=== PATIENT | male | born 1960 | race Caucasian/White ===

== ENCOUNTER 2020-05-18 23:40 | Inpatient (IN) | payer MEDICARE ==
[2020-05-19 03:30] VITALS: BMI 22.8
[2020-05-19] MEDS ORDERED: Ondansetron PF 4 MG/2 ML Vial IVP PRN (04:07)
[2020-05-19] MEDS ORDERED: Acetaminophen 325 MG TAB PO PRN (04:07)
[2020-05-19] MEDS ORDERED: cloNIDine 0.1 MG TAB PO PRN (04:07)
[2020-05-19] MEDS ORDERED: Promethazine HCl 12.5 MG in Sodium Chloride 0.9% 50 ML IVPB PRN (04:07)
[2020-05-19] MEDS ORDERED: Guaifenesin DM 100-10/5 ML UDCUP PO PRN (04:07)
[2020-05-19] MEDS ORDERED: Labetalol HCl 100 MG/20 ML VIAL SLOW IVP PRN (04:07)
[2020-05-19] MEDS ORDERED: HYDROcodone/Acetaminophen 5/325 mg Tablet PO PRN (04:07)
[2020-05-19] MEDS ORDERED: hydrALAZINE 20 MG/ML VIAL SLOW IVP PRN (04:07)
[2020-05-19] MEDS ORDERED: Electrolyte Replacement Protocol 1 EACH FS SCH (04:15)
--- NOTE | 2020-05-19 04:23 | PDOC.HHP ---
Hospitalist HPI - History of Present Illness Anxiety, chest tightness History of Present Illness: Patient is a 59 year old male with no significant PMH who presents as [facility] for anxiety symptoms and chest tightness x 1 week. he reports body an chest tightness during these events and shortness of breath as well. happening for 2 days. patient has history of anxiety, takes no medications. Pain is 10/10 when present. not currently presents. he denies history of copd, cad, mi, other cardiac diagnoses. never had a cardiac workup. on presentation patient had arrhthmia, suspected atrial fibrilllation/flutter, rate 170s, CXR suggested CHF w/ small pleural effusions. CTA chest performed revealing effusions and nonspecific groundglass opacities. TnI, CKMB, ntprobnp elevated. Patient given one time doses of aspirin, diltiazem, lovenox, lasix, amiodarone, transferred here for further workup, currently in room. patient is bradycardic with no symptoms.Of note, patient has wound on L heel. Hospitalist ROS - Review of Systems Constitutional: denies: fever, chills, sweats, weakness, malaise, other Eyes: denies: pain, vision change, conjunctivae inflammation, eyelid inflammation, redness, other ENT: denies: ear pain, ear discharge, nose pain, nose discharge, nose congestion, mouth pain, mouth swelling, throat pain, throat swelling, other Respiratory: denies: cough, dry, shortness of breath, hemoptysis, SOB with excertion, pleuritic pain, sputum, wheezing, other Cardiovascular: reports: chest pain Gastrointestinal: denies: nausea, vomiting, abdominal pain, diarrhea, constipation, melena, hematochezia, other Genitourinary: denies: dysuria, frequency, incontinence, hematuria, retention, other Musculoskeletal: denies: neck pain, shoulder pain, arm pain, back pain, hand pain, leg pain, foot pain, other Skin: denies: rash, lesions, ashley, bruising, other Neurological: denies: weakness, numbness, incoordination, change in speech, confusion, seizures, other All other systems reviewed; all pertinent +/- noted in HPI/Subj Hospitalist History - Past Medical History Other Medical History: reviewed, denies PMH - Past Surgical History Other Surgical History: prostatectomy - Family History Family History: reports: no pertinent history - Social History Smoking Status: Current some day smoker Alcohol: reports: None Drugs: reports: none - Exam General Appearance: NAD, awake alert Eye: PERRL, anicteric sclera ENT: normocephalic atraumatic, no oropharyngeal lesions, moist mucosa Neck: supple, symmetric, no JVD, no thyromegaly, no lymphadenopathy, no carotid bruit Heart: no murmur, no gallops, no rubs, normal peripheral pulses Heart - other findings: regular, bradycardia Respiratory: CTAB, no wheezes, no rales, no ronchi, normal chest expansion, no tachypnea, normal percussion Gastrointestinal: soft, non-tender, non-distended, normal bowel sounds, no palpable masses, no hepatomegaly, no splenomegaly, no bruit Extremities: no cyanosis, no clubbing, no edema Skin: normal turgor, no lesions, no rashes Neurological: cranial nerve grossly intact, normal sensation to touch, no weakness, no focal deficits, no new deficit Musculoskeletal: normal tone, normal strength, no muscle wasting Psychiatric: normal affect, normal behavior, A&O x 3 Hospitalist Results - Labs Lab results: outside records reviewed, pertinent positives as follows CKMB 3.8, pro-BNP 3778, D dimer 1.25, TnI 0.88 - EKG Interpretation EK bpm, atrial flutter, no acute ST changes. Hospitalist H&P A/P - Plan Plan: Patient is a 59 year old male with no significant PMH who presents as [facility] for anxiety symptoms and chest tightness x 1 week. # chest pain # shortness of breath # anxiety symptoms # elevtated troponin # leukocytosis # atrial fibrillation w/ RVR on presentation patient had arrhthmia, suspected atrial fibrilllation/flutter, rate 170s, CXR suggested CHF w/ small pleural effusions. CTA chest performed revealing effusions and nonspecific groundglass opacities. TnI, CKMB, ntprobnp elevated. Patient given one time doses of aspirin, diltiazem, lovenox, lasix, amiodarone, transferred here for further workup, currently in room. patient is bradycardic with no symptoms.Of note, patient has wound on L heel. - admit to floor - hold further rate control medications for now, patient bradycardic and likely got a bit too much rate control medications before transfer - echo - consult cardiology - trend electrolytes, replacement parameters # bradycardia - likely due to excess medications given at outside hospital, monitor closely on telemetry # DVT/GI ppx full code
[2020-05-19] MEDS ORDERED: FLU VACC QS2020-21(6MOS UP)/PF 60 MCG/0.5 ML SYRINGE IM ONE (09:00)
[2020-05-19] MEDS: Famotidine 20 MG TAB PO SCH ×2 (09:07→20:27)
[2020-05-19] MEDS: Polyethylene Glycol 3350 17 GM Packet PO SCH (09:08)
[2020-05-19] MEDS ORDERED: Diltiazem 125 MG in Sodium Chloride 0.9% 100 ML IVPB SCH (10:45)
--- NOTE | 2020-05-19 10:48 | PDOC.HOSPP ---
- Subjective Encounter Date: 05/19/20 Encounter Time: 10:47 Subjective: no chest pain at present. described previous symptoms as like panic attack - Objective Vital Signs & Weight: Vital Signs (12 hours) Temp Pulse Resp BP Pulse Ox 05/19/20 07:38 98.4 F 111 H 16 128/90 95 05/19/20 07:35 95 05/19/20 03:00 98.1 F 93 18 118/84 98 Weight Weight 164 lb Hospitalist ROS - Medication Medications: Active Medications Generic Name Dose Route Start Last Admin Trade Name Freq PRN Reason Stop Dose Admin Famotidine 20 mg 05/19/20 09:00 05/19/20 09:07 Famotidine 20 Mg Tab PO 20 mg BID JULIANNA Administration Polyethylene Glycol 17 gm 05/19/20 09:00 05/19/20 09:08 Polyethylene Glycol 3350 17 Gm Packet PO Not Given DAILY JULIANNA - Exam General Appearance: awake alert Neck: no JVD Heart: irregular Heart - other findings: rapid Respiratory - other findings: post coarse BS Gastrointestinal: soft, normal bowel sounds Extremities: no edema Hosp A/P (1) Chest pain Code(s): R07.9 - CHEST PAIN, UNSPECIFIED Status: Acute Qualifiers: Chest pain type: unspecified Qualified Code(s): R07.9 - Chest pain, unspecified (2) Atrial fibrillation with RVR Code(s): I48.91 - UNSPECIFIED ATRIAL FIBRILLATION Status: Acute - Plan rate control stopped on admission. now about 140, srart diltiazem at 5 no lab ordered here- STAT cbc, cmp d-dimer, trop , EKG, CXR start anticoag
--- NOTE | 2020-05-19 10:54 | RAD ---
XR Chest 1 View Portable History: Chest pain Comparison: None. Findings: Moderate layering pleural effusions. Heart size is enlarged. Low-grade pulmonary edema. Impression: Mild decompensated congestive heart failure.
[2020-05-19 11:17] LABS: #Eosinphils 0.2 thou/uL (0.0-0.7); #Lymphocytes 1.3 thou/uL (1.20-3.40); #Monocytes 0.7 thou/uL (0.11-0.59); #Neutrophils 4.5 thou/uL (1.40-6.50); %Basophils 0.3 % (0.0-1.0); %Eosinophils 3.1 % (0.0-10.0); %Lymphocytes 19.5 % (21.0-51.0); %Neutrophils 66.1 % (42.0-75.0); Hemoglobin 11.6 g/dL (14.0-18.0); Mean Corpuscular HGB CONC 30.9 g/dL (32.0-36.0); Mean Platelet Volume 8.7 fL (7.4-10.4); Platelet Count 365 thou/uL (130-400); RBC Distribution Width 16.5 % (11.5-14.5); Red Blood Cell (RBC) Count 4.48 mill/uL (4.70-6.10); White Blood Cell (WBC) Count 6.8 thou/uL (4.8-10.8)
[2020-05-19 11:39] LABS: ALT (SGPT) 32 U/L (8-55); AST (SGOT) 27 U/L (5-34); Albumin 3.2 g/dL (3.5-5.0); Alkaline Phosphatase 89 U/L (40-110); Anion Gap 12 mmol/L (10-20); BUN (Urea Nitrogen) 14 mg/dL (8.4-25.7); Bilirubin, Total 0.6 mg/dL (0.2-1.2); Calc. Creatinine Clearance 94 mL/min (70-130); Calcium 8.4 mg/dL (7.8-10.44); Carbon Dioxide 23 mmol/L (22-29); Chloride 108 mmol/L (98-107); Glucose 100 mg/dL (70-105); Potassium 3.7 mmol/L (3.5-5.1); Protein, Total 7.2 g/dL (6.0-8.3); Sodium 139 mmol/L (136-145)
--- NOTE | 2020-05-19 15:24 | CON ---
DATE OF CONSULTATION: 05/19/2020 REASON FOR CONSULTATION: Atrial fibrillation. 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 HISTORY OF PRESENT ILLNESS: Mr. Swanson is a 59-year-old gentleman with no significant past medical history, who recently developed weakness, fatigue, and tachycardia. He also had associated shortness of breath, but no chest pain or pressure noted. He does admit to alcohol use in addition to methamphetamine use. He states his last dose of methamphetamine was one week ago. He is currently rate controlled on p.o. medication. PAST MEDICAL HISTORY: None. ALLERGIES: NONE. SURGICAL HISTORY: Prostatectomy. FAMILY HISTORY: Negative for CAD. SOCIAL HISTORY: Positive tobacco. Positive alcohol use. Positive drug use. REVIEW OF SYSTEMS: A 10-point review of systems is reviewed and is as above, otherwise negative. PHYSICAL EXAMINATION: GENERAL: Patient is a pleasant gentleman, who is in no acute distress. The patient appears their stated age. VITAL SIGNS: Blood pressure 136/81, pulse 105, respirations 20. NEUROLOGIC: The patient is alert and oriented x3 with no focal neurologic deficits. HEENT: Sclerae without icterus. Mouth has moist mucous membranes with normal pallor. NECK: No JVD. Carotid upstroke brisk. No bruits bilaterally. LUNGS: Clear to auscultation with unlabored respirations. BACK: No scoliosis or kyphosis. CARDIAC: Irregularly irregular. ABDOMEN: Soft, nontender, nondistended. No peritoneal signs present. No hepatosplenomegaly. No abnormal striae. EXTREMITIES: 2+ femoral and 2+ dorsalis pedis pulses. No cyanosis, clubbing, or edema. SKIN: No gross abnormalities. PERTINENT LABORATORY DATA: Hemoglobin 11.6, hematocrit 37.6. IMPRESSION: 1. New onset atrial fibrillation. 2. Illicit drug use. RECOMMENDATIONS: 1. We will check a TSH. 2. Check echo. 3. Continue rate control. We will add p.o. Cardizem at 180 mg one p.o. q.h.s. I counseled him on cessation of all tobacco products and alcohol in addition to illicit drug use. Echo with Doppler pending. 4. If stable, it would be okay from my standpoint to discharge home with close outpatient followup. Job ID: [id number]
[2020-05-19 18:50] LABS: Amphetamine Detected (NotDetected); Barbiturates Screen Not Detected (NotDetected); Benzodiazepine Screen Not Detected (NotDetected); Cocaine Metabolite Screen Not Detected (NotDetected); Medtox Control Line Valid? VALID (VALID); Medtox Reader # READER 4; Methadone Not Detected (NotDetected); Methamphetamine Detected (NotDetected); Opiate Screen Not Detected (NotDetected); Oxycodone Screen Not Detected (NotDetected); Phencyclidine (PCP) Not Detected (NotDetected); THC/Cannabinoid Screen Not Detected (NotDetected); Tricyclic Screen Not Detected (NotDetected)
[2020-05-19] MEDS ORDERED: Enoxaparin Sodium 40 MG/0.4 ML SYRINGE SC SCH (21:00)
[2020-05-19] MEDS ORDERED: Enoxaparin Sodium 80 MG/0.8 ML SYRINGE SC SCH (21:00)
[2020-05-20 05:43] LABS: Hemoglobin A1c 5.9 % (4.0-6.0)
[2020-05-20 05:44] LABS: Anion Gap 14 mmol/L (10-20); BUN (Urea Nitrogen) 18 mg/dL (8.4-25.7); Calc. Creatinine Clearance 87 mL/min (70-130); Calcium 8.3 mg/dL (7.8-10.44); Carbon Dioxide 24 mmol/L (22-29); Chloride 107 mmol/L (98-107); Glucose 107 mg/dL (70-105); Magnesium 1.9 mg/dL (1.6-2.6); Potassium 3.8 mmol/L (3.5-5.1); Sodium 141 mmol/L (136-145); Troponin I 0.051 ng/mL (< 0.028)
[2020-05-20 06:38] LABS: #Eosinphils 0.2 thou/uL (0.0-0.7); #Lymphocytes 1.5 thou/uL (1.20-3.40); #Neutrophils 5.8 thou/uL (1.40-6.50); %Basophils 0.4 % (0.0-1.0); %Eosinophils 2.5 % (0.0-10.0); %Lymphocytes 17.3 % (21.0-51.0); %Monocytes 12.2 % (0.0-10.0); %Neutrophils 67.7 % (42.0-75.0); Hemoglobin 11.7 g/dL (14.0-18.0); Mean Corpuscular Hemoglobin 25.7 pg (27.0-31.0); Mean Corpuscular Volume 82.8 fL (78.0-98.0); Mean Platelet Volume 9.1 fL (7.4-10.4); Platelet Count 384 thou/uL (130-400); RBC Distribution Width 16.4 % (11.5-14.5); Red Blood Cell (RBC) Count 4.54 mill/uL (4.70-6.10); White Blood Cell (WBC) Count 8.5 thou/uL (4.8-10.8)
--- NOTE | 2020-05-20 07:24 | PDOC.HOSPP ---
- Subjective Encounter Date: 05/20/20 Encounter Time: 07:23 Subjective: occ sob spells - Objective Vital Signs & Weight: Vital Signs (12 hours) Temp Pulse Resp BP Pulse Ox 05/20/20 05:18 90 132/74 05/20/20 03:45 100.8 F H 05/20/20 03:30 100.8 F H 95 18 132/67 95 05/20/20 00:00 101 H Weight Admit Weight 164 lb Weight 164 lb I&O: 05/19/20 05/20/20 05/21/20 06:59 06:59 06:59 Intake Total 480 Balance 480 Result Diagrams: 05/20/20 04:08 05/20/20 04:08 Hospitalist ROS - Medication Medications: Active Medications Generic Name Dose Route Start Last Admin Trade Name Freq PRN Reason Stop Dose Admin Acetaminophen 650 mg 05/19/20 04:07 05/20/20 03:45 Acetaminophen 325 Mg Tab PO 650 mg Q4H PRN Administration Headache/Fever/Mild Pain (1-3) Enoxaparin Sodium 70 mg 05/19/20 21:00 05/19/20 20:27 Enoxaparin Sodium 80 Mg/0.8 Ml Syringe SC 70 mg 0900,2100 JULIANNA Administration Famotidine 20 mg 05/19/20 09:00 05/19/20 20:27 Famotidine 20 Mg Tab PO 20 mg BID JULIANNA Administration Guaifenesin/Dextromethorphan 15 ml 05/19/20 04:07 05/20/20 03:45 Guaifenesin Dm 100-10/5 Ml Udcup PO 15 ml Q4H PRN Administration Cough Polyethylene Glycol 17 gm 05/19/20 09:00 05/19/20 09:08 Polyethylene Glycol 3350 17 Gm Packet PO Not Given DAILY JULIANNA - Exam General Appearance: awake alert Neck: no JVD Heart: no murmur, irregular Respiratory: CTAB Gastrointestinal: soft, normal bowel sounds Extremities: no edema Hosp A/P (1) Chest pain Code(s): R07.9 - CHEST PAIN, UNSPECIFIED Status: Acute Qualifiers: Chest pain type: unspecified Qualified Code(s): R07.9 - Chest pain, unspecified (2) Atrial fibrillation with RVR Code(s): I48.91 - UNSPECIFIED ATRIAL FIBRILLATION Status: Acute (3) Cardiomyopathy Code(s): I42.9 - CARDIOMYOPATHY, UNSPECIFIED Status: Acute Qualifiers: Cardiomyopathy type: unspecified Qualified Code(s): I42.9 - Cardiomyopathy, unspecified (4) Acute systolic HF (heart failure) Code(s): I50.21 - ACUTE SYSTOLIC (CONGESTIVE) HEART FAILURE Status: Acute - Plan 1. atrial fib-episodes 3rd deegree block on diltiazem-med DCed 2. 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 BNP ordered 3. 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
[2020-05-20] MEDS ORDERED: Magnesium 2 GM/50 ML 2 GM in Premix Bag 1 BAG IVPB SCH (08:00)
[2020-05-20] MEDS ORDERED: Heparin 10,000 UNITS/ 10 ML VIAL ONE (08:14)
[2020-05-20] MEDS ORDERED: Verapamil 5 MG/2 ML VIAL ONE (08:14)
[2020-05-20] MEDS ORDERED: Nitroglycerin 100MG/250ML BOT 250 ML ONE (08:14)
[2020-05-20] MEDS ORDERED: Communication Order-Pharmacy FS SCH (08:30)
[2020-05-20] MEDS ORDERED: Midazolam HCl 2 mg/2 ml Vial ONE (08:43)
[2020-05-20] MEDS ORDERED: Fentanyl 100 MCG/2 ML VIAL ONE (08:43)
--- NOTE | 2020-05-20 08:57 | PRG ---
DATE OF SERVICE: 05/20/2020 Mr. Swanson's overall LVEF does appear markedly diminished. I discussed this with Mr. Swanson in detail. 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 I discussed this with Mr. Swanson. Given the above, there is also increased risk of underlying coronary artery disease. We would recommend coronary angiography, possible PCI. I discussed the procedure in full detail with Mr. Swanson. Risks include, but not limited to the following: , stroke, NV, need for emergency surgery, loss of limb, bleeding, and infection, as well as a reaction to the dye causing kidney failure and needing long-term dialysis. I also discussed the risks of PCI to include all of the above including coronary dissection and perforation in addition to acute stent thrombosis and restenosis. All questions about the procedure were answered. Given the above, the patient agreed to proceed with coronary angiography and possible PCI. All questions were answered. Also discussed drug coated versus nondrug-coated stent placement. There are no contraindications to proceed if needed. Also discussed LifeVest. The patient is amenable. Also based on his low LVEF, we would recommend anticoagulation therapy. The patient also developed third-degree AV block while on Cardizem. He was also asleep. He converted back to sinus rhythm. He has no previous history of syncope or presyncope. May consider an EVR to assess for any further episodes off calcium channel blockade. Job ID: [id number]
[2020-05-20] MEDS: Famotidine 20 MG TAB PO SCH ×2 (09:14→20:22)
[2020-05-20] MEDS: Furosemide 40 MG TAB PO SCH (09:15)
[2020-05-20] MEDS: Lisinopril 2.5 MG TAB PO SCH (09:15)
[2020-05-20] MEDS: Polyethylene Glycol 3350 17 GM Packet PO SCH (09:33)
[2020-05-20] MEDS ORDERED: Iopamidol 370 76% 100 ML VIAL ONE (13:27)
[2020-05-20] MEDS: Amiodarone 200 MG TAB PO SCH (20:22)
--- NOTE | 2020-05-20 21:45 | CON ---
DATE OF CONSULTATION: 05/20/2020 REASON FOR CONSULTATION: Heart block, atrial arrhythmias. SUBJECTIVE: Mr. Swanson is a 59-year-old gentleman who had been experiencing shortness of breath with reported panic attacks, which prompted him to seek emergent medical care. His episode started a few days before he came to the hospital. Overall, he reports being fairly healthy and not having a significant past medical history, but has had significant emotional distress over the past 2 years with the loss of multiple people who are very close and important to him. He endorses a long-time history of smoking, alcohol consumption, and recent use of methamphetamines over the past 2 years, though nothing "excessive or heavy." The episodes of chest tightness with shortness of breath and chest discomfort have been happening on and off for about 2 days before coming to the hospital. These were occasionally responsive to deep breaths reportedly. When he came into the hospital, he was found to be in atrial fibrillation with RVR. He was placed on diltiazem IV drip in addition to one time amiodarone dose. Rate control was achieved, eventually converted to sinus rhythm. Upon arriving to [facility], where he was transferred from, he was found to be bradycardic, but asymptomatic. He has since had episodes of AV block while on a diltiazem drip and while off the diltiazem drip, but while asleep; prompting EP consultation for consideration of a pacemaker and arrhythmia management. He recently returned to his room on telemetry after undergoing a diagnostic left heart catheterization, which did not require intervention. He denies any syncopal events or history of syncopal events. He does endorse occasional dizziness and near syncope, which occurred during the times of his heart racing and palpitations with chest tightness. PAST MEDICAL HISTORY: Denies any prior history. REVIEW OF SYSTEMS: 12-point review of systems is negative except that listed above in HPI. FAMILY HISTORY: Unremarkable. SOCIAL HISTORY: Positive for tobacco, alcohol, and methamphetamine. HOME MEDICATIONS: None. OBJECTIVE: VITAL SIGNS: Temperature 98.2, pulse 78, blood pressure 115/69, respirations 16, and oxygen 95% on room air. GENERAL: Patient is alert, oriented. He is slightly lethargic at time of the exam from his recent left heart catheterization. He is in no apparent distress. He does answer questions appropriately. HEENT: He is normocephalic and atraumatic. Sclerae anicteric. EOMs are intact. Oral mucosa is moist and pink. NECK: Supple without jugular venous distention. There is no lymphadenopathy. HEART: His heart rate is irregularly irregular with crisp S1, S2. PMI nondisplaced. LUNGS: Clear to auscultation bilaterally without wheezes, crackles, or rhonchi. EXTREMITIES: Warm and dry to touch. Well perfused without clubbing, cyanosis, or edema. Gait was not assessed. DATABASE: Laboratory: Hematology was unremarkable. Chemistry was unremarkable. BNP 447. Urine toxicology was positive for amphetamines and methamphetamines. Telemetry and EKG: Initial 12-lead EKG shows atrial flutter with RVR and variable AV conduction with ventricular rate of 126 beats per minute on 05/19/2020 at 10:53. Subsequent telemetry tracings show sinus rhythm with occasional atrial flutter episodes and nonsustained VT in addition to transient episodes of advanced AV block, possibly with junctional escape beats. Echocardiogram dated 05/19/2020, LVEF 25% to 30%. IMPRESSION: This is a 59-year-old man, who presented to the hospital with symptoms of chest tightness and palpitations, found to be in atrial fibrillation with rapid ventricular response. He has no significant past medical history, but does endorse tobacco, alcohol, and use of methamphetamines. He was found to have newly discovered nonischemic cardiomyopathy with an LVEF of 25% to 30%. Left heart catheterization was performed today, no intervention was required. On telemetry, he has now converted to sinus rhythm, but has transient nighttime bradycardia with high-grade AV block, possibly with junctional escape beats of which he is asymptomatic of. There have been no episodes while he is awake and he has had no syncope or near syncope in correlation with these events. 1. Newly found paroxysmal atrial fibrillation/atrial flutter with rapid ventricular response with associated symptoms of palpitations and diaphoresis. 2. Transient nighttime high-grade atrioventricular block with adequate junctional escape rhythm, possibly related to undiagnosed obstructive sleep apnea. 3. Newly found nonischemic cardiomyopathy, systolic heart failure, LVEF 25% to 30%. PLAN AND RECOMMENDATIONS: 1. In regard to his nonischemic cardiomyopathy and systolic heart failure, recommend standard guideline directed medication therapy including beta-hernandez therapy. Per Cardiology, recommend LifeVest. Consider ICD implant if LVEF remains less than or equal to 35% by repeat echo in 3 months. 2. Continue to monitor for tachy-diony syndrome, which can be performed with the LifeVest as he is already planning to wear this. 3. Cardiomyopathy is possibly tachycardia mediated. I recommend gentle amiodarone loading during this recovery period while he wears a LifeVest. Consider outpatient PVI in the future. He has CHADS-VASc score of 1 based on cardiomyopathy. Recommend ASA 81mg daily unless cardiology feels the [facility] findings would constitute vascular disease which would increase his score to 2, at which point he would require full anticoagulation with an agent such as Eliquis. Thank you for allowing me to participate in the care of this patient. Job ID: [id number]
--- NOTE | 2020-05-21 08:07 | PDOC.HOSPP ---
- Subjective Encounter Date: 05/21/20 Encounter Time: 08:04 Subjective: no sob, chest pain - Objective Vital Signs & Weight: Vital Signs (12 hours) Temp Pulse Resp BP Pulse Ox 05/21/20 07:30 98.2 F 87 16 125/78 96 05/21/20 03:37 98.5 F 92 18 120/87 97 05/20/20 20:18 98.8 F 88 18 117/73 95 Weight Admit Weight 164 lb Weight 164 lb I&O: 05/20/20 05/21/20 05/22/20 06:59 06:59 06:59 Intake Total 480 1400 Output Total 800 Balance 480 600 Result Diagrams: 05/20/20 04:08 05/20/20 04:08 Hospitalist ROS - Medication Medications: Active Medications Generic Name Dose Route Start Last Admin Trade Name Freq PRN Reason Stop Dose Admin Acetaminophen 650 mg 05/19/20 04:07 05/20/20 03:45 Acetaminophen 325 Mg Tab PO 650 mg Q4H PRN Administration Headache/Fever/Mild Pain (1-3) Amiodarone HCl 400 mg 05/20/20 21:00 05/20/20 20:22 Amiodarone 200 Mg Tab PO 400 mg BID JULIANNA Administration Famotidine 20 mg 05/19/20 09:00 05/20/20 20:22 Famotidine 20 Mg Tab PO 20 mg BID JULIANNA Administration Furosemide 40 mg 05/20/20 07:30 05/20/20 09:15 Furosemide 40 Mg Tab PO 40 mg DAILY-AC JULIANNA Administration Guaifenesin/Dextromethorphan 15 ml 05/19/20 04:07 05/20/20 03:45 Guaifenesin Dm 100-10/5 Ml Udcup PO 15 ml Q4H PRN Administration Cough Lisinopril 2.5 mg 05/20/20 09:00 05/20/20 09:15 Lisinopril 2.5 Mg Tab PO 2.5 mg DAILY JULIANNA Administration Polyethylene Glycol 17 gm 05/19/20 09:00 05/20/20 09:33 Polyethylene Glycol 3350 17 Gm Packet PO Not Given DAILY JULIANNA - Exam General Appearance: awake alert Neck: no JVD Heart: no murmur, irregular Respiratory: CTAB Gastrointestinal: soft, normal bowel sounds Extremities: no edema Hosp A/P (1) Chest pain Code(s): R07.9 - CHEST PAIN, UNSPECIFIED Status: Acute Qualifiers: Chest pain type: unspecified Qualified Code(s): R07.9 - Chest pain, unspecified (2) Atrial fibrillation with RVR Code(s): I48.91 - UNSPECIFIED ATRIAL FIBRILLATION Status: Acute (3) Cardiomyopathy Code(s): I42.9 - CARDIOMYOPATHY, UNSPECIFIED Status: Acute Qualifiers: Cardiomyopathy type: unspecified Qualified Code(s): I42.9 - Cardiomyopathy, unspecified (4) Acute systolic HF (heart failure) Code(s): I50.21 - ACUTE SYSTOLIC (CONGESTIVE) HEART FAILURE Status: Acute (5) Wound, open, foot Code(s): S91.309A - UNSPECIFIED OPEN WOUND, UNSPECIFIED FOOT, INITIAL ENCOUNTER Status: Acute - Plan post cath-no 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
[2020-05-21] MEDS: Lisinopril 2.5 MG TAB PO SCH (08:10)
[2020-05-21] MEDS: Amiodarone 200 MG TAB PO SCH ×2 (08:11→21:05)
[2020-05-21] MEDS: Famotidine 20 MG TAB PO SCH ×2 (08:11→21:04)
[2020-05-21] MEDS: Furosemide 40 MG TAB PO SCH (08:11)
[2020-05-21] MEDS: Polyethylene Glycol 3350 17 GM Packet PO SCH (08:11)
--- NOTE | 2020-05-21 09:30 | PRG ---
DATE OF SERVICE: 05/21/2020 SUBJECTIVE: Mr. Swanson is stable. No current complaints. He continues to be in sinus rhythm. EP was consulted. They recommended amiodarone given low LVEF. Also recommended LifeVest. OBJECTIVE: VITAL SIGNS: Blood pressure 125/78, pulse 87, temperature 98.2. LUNGS: Clear to auscultation. HEART: Regular rate and rhythm. ABDOMEN: Soft, nontender, nondistended. EXTREMITIES: Large ulceration noted to the left heel. 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 3. Atrial fibrillation. 4. Illicit drug use. RECOMMENDATIONS: The most likely scenario of Mr. Swanson's etiology is drug use. He has been using methamphetamines fairly regularly over the last several months. I counseled him on cessation of all illicit drug use. I would recommend beta-hernandez therapy in addition to SAM inhibitor therapy. Amiodarone has been started 400 mg p.o. b.i.d. Would recommend amiodarone 400 b.i.d. for one week only, then decrease to 400 mg one p.o. q.a.m. We will also recommend Eliquis 5 mg one p.o. b.i.d. prior to discharge. He is currently on Lovenox. I have also recommended LifeVest. From my standpoint, he is stable for discharge once he receives a LifeVest from a cardiac standpoint. He also states there is a admissions nurse in [place] and he will follow up with his cardiac admissions nurse in [place]. Otherwise, I have no further recommendations. Please re-consult if needed. Job ID: [id number]
--- NOTE | 2020-05-21 17:14 | PDOC.EP ---
- Subjective Date: 05/21/20 Time: 08:00 Interval History: feels fair today voicing no cardiac concerns or complaints. He has had no heart racing, palpitations, dizziness, near syncope, stroke or stroke-like symptoms. - Review of Systems Constitutional: denies: chills, fever, malaise, sweats, weakness, other Respiratory: denies: cough, dry, hemoptysis, pleuritic pain, shortness of breath, SOB with excertion, sputum, wheezing, other Cardiology: denies: chest pain, edema, heart racing, light headedness, paroxysmal noc. dyspnea, orthopnea, palpitations, passing out, pleuritic pain, pressure, swelling, other Gastrointestinal: denies: abdominal pain, constipation, diarrhea, hematochezia, melena, nausea, vomitting, other Musculoskeletal: denies: unstable gait, falls, neck pain, shoulder pain, arm pain, hand pain, leg pain, foot pain, other - Objective Allergies/Adverse Reactions: Allergies Allergy/AdvReac Type Severity Reaction Status Date / Time No Known Drug Allergies Allergy Verified 05/19/20 03:43 Current Medications Acetaminophen (Acetaminophen 325 Mg Tab) 650 mg PO Q4H PRN PRN Reason: Headache/Fever/Mild Pain (1-3) Last Admin: 05/20/20 03:45 Dose: 650 mg Documented by: Hydrocodone Bitart/Acetaminophen (Hydrocodone/Acetaminophen 5/325 Mg Tablet) 1 tab PO Q4H PRN PRN Reason: Moderate Pain (4-6) Albuterol/Ipratropium (Ipratropium/Albuterol Sulfate 3 Ml Neb) 3 ml NEB [id number] PRN PRN Reason: SOB &/or Wheezing Amiodarone HCl (Amiodarone 200 Mg Tab) 400 mg PO BID [facility] Stop: 05/25/20 21:01 Last Admin: 05/21/20 08:11 Dose: 400 mg Documented by: Amiodarone HCl (Amiodarone 200 Mg Tab) 400 mg PO DAILY [facility] Stop: 06/24/20 09:01 Clonidine (Clonidine 0.1 Mg Tab) 0.1 mg PO BID PRN PRN Reason: SBP > 160 use second Famotidine (Famotidine 20 Mg Tab) 20 mg PO BID [facility] Last Admin: 05/21/20 08:11 Dose: 20 mg Documented by: Furosemide (Furosemide 40 Mg Tab) 40 mg PO DAILY-AC [facility] Last Admin: 05/21/20 08:11 Dose: 40 mg Documented by: Guaifenesin/Dextromethorphan (Guaifenesin Dm 100-10/5 Ml Udcup) 15 ml PO Q4H PRN PRN Reason: Cough Last Admin: 05/20/20 03:45 Dose: 15 ml Documented by: Hydralazine HCl (Hydralazine 20 Mg/Ml Vial) 10 mg SLOW IVP Q6H PRN PRN Reason: SBP GREATER THAN 160 Promethazine HCl 12.5 mg/ (Sodium Chloride) 50.5 mls @ 202 mls/hr IVPB Q6H PRN PRN Reason: Nausea/vomiting use second Labetalol HCl (Labetalol Hcl 100 Mg/20 Ml Vial) 20 mg SLOW IVP Q4H PRN PRN Reason: SBP > 160 use first Lisinopril (Lisinopril 2.5 Mg Tab) 2.5 mg PO DAILY [facility] Last Admin: 05/21/20 08:10 Dose: 2.5 mg Documented by: Miscellaneous Medication (Electrolyte Replacement Protocol 1 Each) 1 each FS ASDIR [facility] Ondansetron HCl (Ondansetron Pf 4 Mg/2 Ml Vial) 4 mg IVP Q6H PRN PRN Reason: Nausea/Vomiting use 1st Polyethylene Glycol (Polyethylene Glycol 3350 17 Gm Packet) 17 gm PO DAILY [facility] Last Admin: 05/21/20 08:11 Dose: Not Given Documented by: Vital Signs & Weight: Vital Signs Temp Pulse Resp BP Pulse Ox 05/21/20 15:10 97.9 F 89 18 129/76 95 05/21/20 11:09 98.2 F 93 18 118/71 95 05/21/20 08:11 95 05/21/20 07:30 98.2 F 87 16 125/78 96 Admit Weight 164 lb Weight 164 lb I/O: I/O 05/20/20 05/21/20 05/22/20 06:59 06:59 06:59 Intake Total 480 1400 Output Total 800 Balance 480 600 - Quality Measures Condition: Atrial Fibrillation/Flutter (hx or current) CV meds: Aspirin: Yes - Physical Exam General: alert & oriented x3, appears well, no apparent distress, speech clear, affect appropriate HEENT: mucus membranes moist, normocephaly Neck: supple neck, midline trachea, no JVD/HJR, no masses, no bruit, no lymphadenopathy, no thromegaly Cardiology: regular rate and rhythm Lungs: clear to auscultation, normal breath sounds, normal exam, no wheeze, rales, rhonchi, no wheezes, no rales, no rhonchi Neurology: cranial nerve 2-12 intact, grossly intact, motor function intact, sensory function intact, negative rhomberg, coordination normal, no lateralizing findings - Chadsvasc Risk factors Congestive heart failure: 1 (Possibly 2 if left heart catheterization results showed vascular disease) Risk Score: 1 - Labs Result Diagrams: 05/20/20 04:08 05/20/20 04:08 - EKG Interpretation EKG Method: Telemetry EKG shows: Sinus rhythm - Assessment/Plan Assessment/Plan: 1. Newly found paroxysmal atrial fibrillation/atrial flutter with rapid ventricular response with associated symptoms of palpitations and diaphoresis. 2. Transient nighttime high-grade atrioventricular block with adequate junctional escape rhythm, possibly related to undiagnosed obstructive sleep apnea. 3. Newly found nonischemic cardiomyopathy, systolic heart failure, LVEF 25% to 30%. PLAN AND RECOMMENDATIONS: Rhythm is been stable with no further atrial arrhythmias or bradycardia ov ernight. continue amiodarone taper as ordered by Cardiology. They are also arranging for LifeVest. recommend repeat echocardiogram in 90 days. If his EF remains less than or equal to 35% I would recommend dual-chamber ICD implant given his history of atrial arrhythmias and recent bradycardia. I will see him back in clinic in 4- 6 weeks as outpatient for follow-up regarding his atrial fibrillation.
--- NOTE | 2020-05-22 | CON ---
DATE OF CONSULTATION: 05/19/2020 HISTORY OF PRESENT ILLNESS: Ignacio Swanson is a 59-year-old male patient admitted to the hospitalist service on 05/19/2020. He was noted to experience anxiety and chest tightness. He has a history of methamphetamine inhalational use. Last used 2 to 3 days prior to admission. 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 The patient at this hospitalization was found to have a cardiomyopathy, 20% to 25% percent ejection fraction, and cardiac catheterization revealed it to be nonischemic. He has had problems with atrial fibrillation, flutter and controlled medically with antiarrhythmics. Dr. Lujan has seen him and consideration for LifeVest, anticoagulation, defibrillator given and will be determined at later date. The patient has left foot drop, wears a foot brace and works with it. He developed irritation of his left heel and states he removed some hard callus when he removed the boot and brace. I have been asked to see him regarding that. Evaluation of the foot reveals palpable pedal pulses, posterior tibial, dorsalis pedis, posterior popliteal and femoral pulses. There is no evidence clinically of PAD. There is no cellulitis. He has a 3 x 2 cm open wound granulating base. There are no sinus tracts. There is no infection. ALLERGIES: NONE. SOCIAL HISTORY: Tobacco, none. Methamphetamine inhalational use. Alcohol abuse. MEDICATIONS: Outpatient none. Inpatient: 1. Lisinopril 2.5 mg a day. 2. Labetalol p.r.n. 3. Furosemide 40 mg a day. 4. Amiodarone 400 mg daily. PAST SURGICAL HISTORY: Noncontributory. PAST MEDICAL HISTORY: As above in diagnosis and hospitalization. FAMILY HISTORY: Noncontributory. REVIEW OF SYSTEMS: Otherwise noncontributory. PHYSICAL EXAMINATION: VITAL SIGNS: 97.9, 89, 129/76. HEAD, EARS, EYES, NOSE AND THROAT: Unremarkable. LUNGS: Clear to auscultation. CARDIAC: Irregularly irregular. ABDOMEN: Soft, nontender, nondistended. EXTREMITIES: Palpable femoral, popliteal, dorsalis pedis, posterior tibial pulses in both feet. No ankle edema. Left foot heel, non-weightbearing portion reveals open wound 3 x 2 cm with healthy granulating base. No evidence of infection. No deep sinus tracts. LABORATORY DATA: White count 8 and hemoglobin 11.7. Basic metabolic profile normal. BUN and creatinine are normal. ASSESSMENT AND PLAN: 1. Open wound, left heel. No history of diabetes. No evidence of peripheral arterial disease. Recommend daily wound care. No surgical intervention is necessary. Avoid pressure and irritation by avoiding his brace and boots until this is healed. We will apply orthotic shoe to wear to accommodate his dressings. He can follow up with me in the next 2 to 3 weeks or physician closer in [place]. 2. Methamphetamine use inhalational. 3. Alcohol abuse. 4. Nonischemic cardiomyopathy as noted above, seen by Dr. Chi and Dr. Lujan. Job ID: [id number]
[2020-05-22] MEDS ORDERED: Metoprolol Tartrate 5 MG/5 ML VIAL IVP PRN (00:04)
--- NOTE | 2020-05-22 00:06 | PDOC.EVN ---
Event Note - Event Note Event Note: Nursing called, reported aflutter 120s, BP WNL, tried vagal maneuvers, unsuccessful. Give lopressor 5mg IVP x 1 dose now.
[2020-05-22] MEDS ORDERED: Lorazepam 1 MG TAB PO SCH (00:30)
--- NOTE | 2020-05-22 08:46 | PRG ---
DATE OF SERVICE: 05/22/2020 SUBJECTIVE: Mr. Swanson is doing well. He continues to have intermittent episodes of Aflutter/fibrillation. He is currently asymptomatic. LifeVest has been ordered. OBJECTIVE: VITAL SIGNS: Blood pressure 128/91, pulse 84, respirations 20. LUNGS: Clear to auscultation. HEART: Regular rate and rhythm. ABDOMEN: Soft, nontender, nondistended. EXTREMITIES: No edema. IMPRESSION: 1. Drug-induced cardiomyopathy. 2. Atrial fibrillation/flutter. 3. Illicit drug use. RECOMMENDATIONS: 1. Continue amiodarone. Add metoprolol. 2. Continue lisinopril. 3. Add Eliquis when okay with Dr. Lujan. 4. Once he is evaluated by Dr. Lujan, if he feels medical therapy is recommended, it would be okay from my standpoint to discharge home with outpatient followup in [place]. Job ID: [id number]
[2020-05-22] MEDS: Polyethylene Glycol 3350 17 GM Packet PO SCH (08:51)
[2020-05-22] MEDS: Lisinopril 2.5 MG TAB PO SCH (08:51)
[2020-05-22] MEDS: Famotidine 20 MG TAB PO SCH (08:51)
[2020-05-22] MEDS: Furosemide 40 MG TAB PO SCH (08:51)
[2020-05-22] MEDS: Amiodarone 200 MG TAB PO SCH (08:51)
[2020-05-22] MEDS ORDERED: Carvedilol 6.25 MG TAB PO SCH (09:00)
[2020-05-22] MEDS ORDERED: Carvedilol 3.125 MG TAB PO SCH (09:00)
--- NOTE | 2020-05-22 10:28 | PDOC.HOSPP ---
- Subjective Encounter Date: 05/22/20 Encounter Time: 10:23 Subjective: no sob, chest pain - Objective Vital Signs & Weight: Vital Signs (12 hours) Temp Pulse Resp BP Pulse Ox 05/22/20 07:24 98.1 F 112 H 12 128/91 H 96 05/22/20 03:29 98.5 F 84 20 106/71 93 L 05/21/20 23:09 110 H 20 108/76 Weight Admit Weight 164 lb Weight 164 lb I&O: 05/21/20 05/22/20 05/23/20 06:59 06:59 06:59 Intake Total 1400 480 Output Total 800 Balance 600 480 Result Diagrams: 05/20/20 04:08 05/20/20 04:08 Hospitalist ROS - Medication Medications: Active Medications Generic Name Dose Route Start Last Admin Trade Name Freq PRN Reason Stop Dose Admin Acetaminophen 650 mg 05/19/20 04:07 05/20/20 03:45 Acetaminophen 325 Mg Tab PO 650 mg Q4H PRN Administration Headache/Fever/Mild Pain (1-3) Amiodarone HCl 400 mg 05/20/20 21:00 05/22/20 08:51 Amiodarone 200 Mg Tab PO 05/25/20 21:01 400 mg BID JULIANNA Administration Carvedilol 3.125 mg 05/22/20 09:00 05/22/20 08:52 Carvedilol 3.125 Mg Tab PO 3.125 mg BID JULIANNA Administration Famotidine 20 mg 05/19/20 09:00 05/22/20 08:51 Famotidine 20 Mg Tab PO 20 mg BID JULIANNA Administration Furosemide 40 mg 05/20/20 07:30 05/22/20 08:51 Furosemide 40 Mg Tab PO 40 mg DAILY-AC JULIANNA Administration Guaifenesin/Dextromethorphan 15 ml 05/19/20 04:07 05/20/20 03:45 Guaifenesin Dm 100-10/5 Ml Udcup PO 15 ml Q4H PRN Administration Cough Lisinopril 2.5 mg 05/20/20 09:00 05/22/20 08:51 Lisinopril 2.5 Mg Tab PO 2.5 mg DAILY JULIANNA Administration Metoprolol Tartrate 5 mg 05/22/20 00:04 05/22/20 00:30 Metoprolol Tartrate 5 Mg/5 Ml Vial IVP 05/23/20 00:05 5 mg ONE PRN Administration Cardiac Arrythmia Polyethylene Glycol 17 gm 05/19/20 09:00 05/22/20 08:51 Polyethylene Glycol 3350 17 Gm Packet PO Not Given DAILY JULIANNA - Exam General Appearance: awake alert Neck: no JVD Heart: RRR, no murmur Respiratory: CTAB Gastrointestinal: soft, normal bowel sounds Extremities: no edema Hosp A/P (1) Chest pain Code(s): R07.9 - CHEST PAIN, UNSPECIFIED Status: Resolved Qualifiers: Chest pain type: unspecified Qualified Code(s): R07.9 - Chest pain, unspecified (2) Atrial fibrillation with RVR Code(s): I48.91 - UNSPECIFIED ATRIAL FIBRILLATION Status: Acute (3) Cardiomyopathy Code(s): I42.9 - CARDIOMYOPATHY, UNSPECIFIED Status: Acute Qualifiers: Cardiomyopathy type: due to drug Qualified Code(s): I42.7 - Cardiomyopathy due to drug and external agent (4) Acute systolic HF (heart failure) Code(s): I50.21 - ACUTE SYSTOLIC (CONGESTIVE) HEART FAILURE Status: Resolved (5) Wound, open, foot Code(s): S91.309A - UNSPECIFIED OPEN WOUND, UNSPECIFIED FOOT, INITIAL ENCOUNTER Status: Acute - Plan episode etrial flutter, poss EP study FU later
--- NOTE | 2020-05-22 11:37 | PDOC.EP ---
- Subjective Date: 05/22/20 Time: 11:35 Interval History: Has intermittent a flutter overnight, mild RVR only. self terminated. - Review of Systems ROS unobtainable: due to endotracheal tube, due to mental status Constitutional: denies: chills, fever, malaise, sweats, weakness, other Respiratory: denies: cough, dry, hemoptysis, pleuritic pain, shortness of breath, SOB with excertion, sputum, wheezing, other Cardiology: reports: palpitations. denies: chest pain, edema, heart racing, light headedness, orthopnea, paroxysmal noc. dyspnea, passing out, pleuritic pain, pressure, swelling, other Gastrointestinal: denies: abdominal pain, constipation, diarrhea, hematochezia, melena, nausea, vomitting, other Musculoskeletal: denies: unstable gait, falls, neck pain, shoulder pain, arm pain, hand pain, leg pain, foot pain, other - Objective Allergies/Adverse Reactions: Allergies Allergy/AdvReac Type Severity Reaction Status Date / Time No Known Drug Allergies Allergy Verified 05/19/20 03:43 Current Medications Acetaminophen (Acetaminophen 325 Mg Tab) 650 mg PO Q4H PRN PRN Reason: Headache/Fever/Mild Pain (1-3) Last Admin: 05/20/20 03:45 Dose: 650 mg Documented by: Hydrocodone Bitart/Acetaminophen (Hydrocodone/Acetaminophen 5/325 Mg Tablet) 1 tab PO Q4H PRN PRN Reason: Moderate Pain (4-6) Albuterol/Ipratropium (Ipratropium/Albuterol Sulfate 3 Ml Neb) 3 ml NEB [id number] PRN PRN Reason: SOB &/or Wheezing Amiodarone HCl (Amiodarone 200 Mg Tab) 400 mg PO BID [facility] Stop: 05/25/20 21:01 Last Admin: 05/22/20 08:51 Dose: 400 mg Documented by: Amiodarone HCl (Amiodarone 200 Mg Tab) 400 mg PO DAILY [facility] Stop: 06/24/20 09:01 Carvedilol (Carvedilol 3.125 Mg Tab) 3.125 mg PO BID [facility] Last Admin: 05/22/20 08:52 Dose: 3.125 mg Documented by: Clonidine (Clonidine 0.1 Mg Tab) 0.1 mg PO BID PRN PRN Reason: SBP > 160 use second Famotidine (Famotidine 20 Mg Tab) 20 mg PO BID [facility] Last Admin: 05/22/20 08:51 Dose: 20 mg Documented by: Furosemide (Furosemide 40 Mg Tab) 40 mg PO DAILY[facility] Last Admin: 05/22/20 08:51 Dose: 40 mg Documented by: Guaifenesin/Dextromethorphan (Guaifenesin Dm 100-10/5 Ml Udcup) 15 ml PO Q4H PRN PRN Reason: Cough Last Admin: 05/20/20 03:45 Dose: 15 ml Documented by: Hydralazine HCl (Hydralazine 20 Mg/Ml Vial) 10 mg SLOW IVP Q6H PRN PRN Reason: SBP GREATER THAN 160 Promethazine HCl 12.5 mg/ (Sodium Chloride) 50.5 mls @ 202 mls/hr IVPB Q6H PRN PRN Reason: Nausea/vomiting use second Labetalol HCl (Labetalol Hcl 100 Mg/20 Ml Vial) 20 mg SLOW IVP Q4H PRN PRN Reason: SBP > 160 use first Lisinopril (Lisinopril 2.5 Mg Tab) 2.5 mg PO DAILY [facility] Last Admin: 05/22/20 08:51 Dose: 2.5 mg Documented by: Metoprolol Tartrate (Metoprolol Tartrate 5 Mg/5 Ml Vial) 5 mg IVP ONE PRN PRN Reason: Cardiac Arrythmia Stop: 05/23/20 00:05 Last Admin: 05/22/20 00:30 Dose: 5 mg Documented by: Miscellaneous Medication (Electrolyte Replacement Protocol 1 Each) 1 each FS ASDIR [facility] Ondansetron HCl (Ondansetron Pf 4 Mg/2 Ml Vial) 4 mg IVP Q6H PRN PRN Reason: Nausea/Vomiting use 1st Polyethylene Glycol (Polyethylene Glycol 3350 17 Gm Packet) 17 gm PO DAILY [facility] Last Admin: 05/22/20 08:51 Dose: Not Given Documented by: Vital Signs & Weight: Vital Signs Temp Pulse Resp BP Pulse Ox 05/22/20 07:24 98.1 F 112 H 12 128/91 H 96 05/22/20 03:29 98.5 F 84 20 106/71 93 L Admit Weight 164 lb Weight 164 lb I/O: I/O 05/21/20 05/22/20 05/23/20 06:59 06:59 06:59 Intake Total 1400 480 Output Total 800 Balance 600 480 - Quality Measures Condition: Atrial Fibrillation/Flutter (hx or current) CV meds: Aspirin: Yes, Eliquis: Yes - Physical Exam General: alert & oriented x3, appears well HEENT: normocephaly Neck: no JVD/HJR, no thromegaly Cardiology: no murmur, regular rate Lungs: normal breath sounds, no rales, no rhonchi Neurology: grossly intact Abdomen: unremarkable, soft, non-tender - Chadsvas Risk factors Congestive heart failure: 1 Hypertension: 1 Vascular disease: 1 Risk Score: 3 - Labs Result Diagrams: 05/20/20 04:08 05/20/20 04:08 - EKG Interpretation EKG Method: Telemetry EKG shows: Sinus rhythm, Typical atrial flutter - Assessment/Plan Assessment/Plan: 1. Newly found paroxysmal atrial fibrillation/atrial flutter with rapid ventricular response with associated symptoms of palpitations and diaphoresis. 2. Transient nighttime high-grade atrioventricular block with adequate junctional escape rhythm, possibly related to undiagnosed obstructive sleep apnea. 3. Newly found nonischemic cardiomyopathy, systolic heart failure, LVEF 25% to 30%. PLAN AND RECOMMENDATIONS: Rhythm is been stable but with further atrial arrhythmias. No severe bradyca rdia overnight. continue amiodarone taper as ordered by Cardiology. He has been fitted fore the LifeVest. I would recommend repeat electrocardiogram in 90 days. If his EF remains less than or equal to 35% I would recommend dual-chamber ICD implant given his history of atrial arrhythmias and recent bradycardia. I will see him back in clinic in 4-6 weeks as outpatient for follow-up regarding his atrial fibrillation. He is planning to see Dr Kan for Cards in [place], but possibly see us back for EP care. discussed with PT/Family and Dr Chi.
[2020-05-22 11:53] VITALS: BP 111/63; TEMP 97.5
--- NOTE | 2020-05-22 14:43 | PDOC.BPN ---
- Brief Progress Note Encounter Date: 05/22/20 Encounter Time: 14:41 has life vest. cont amiodarone, coreg, lasix, SAM. awaiting EP decision on DC
--- NOTE | 2020-05-25 06:27 | PQF ---
CLINICAL DOCUMENTATION CLARIFICATION FORM: Dear : Michael Cummins Date / Time: 05/25/20 06:25 Please exercise your independent, professional judgment in responding to the clarification form. Clinical indicators are provided on the bottom of this form for your review Is Chest Pain associated with: Please check appropriate box(es): [ ] Paroxysmal Afib [ ] Acute CHF [x ] Poisoning of methamphetamine [ ] Other diagnosis, please specify [ ] Unable to determine Physician Signature: Date/Time: For continuity of documentation, please document condition throughout progress notes and discharge summary. Thank You. To be completed by CDI/Coding staff for physician review: Present Clinical Indicators - Signs / Symptoms / Labs Results and Location in Medical Record [x] CC: chest tightness HP 05/18 [x] Pain is 10/10 when present HP 05/18 [x] Chest Xray suggested CHF with small pleural effusions HP 05/18 [x] admits to alcohol use in addition to methamphetamine use Consult 05/19 [x] Illicit drug use Consult 05/19 [x] BNP= 447.6 Laboratory 05/20 Present Risk Factors Results and Location in Medical Record [x] Smoker HP 05/18 [x] Afib HP 05/18 [x] CMP PN 05/20 [x] Acute CHF PN 05/20 Present Treatments Results and Location in Medical Record [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
--- NOTE | 2020-05-25 06:29 | PQF ---
CLINICAL DOCUMENTATION CLARIFICATION FORM: Dear : Michael Cummins Date / Time: 05/25/20 06:28 Please exercise your independent, professional judgment in responding to the clarification form. Clinical indicators are provided on the bottom of this form for your review Based on the clinical indicators on admit, can you determine if Acute systolic HF was present at the time of admission or developed after admission? Diagnosis: Acute systolic HF Present on Admission (POA): [ ] Yes [ ] No [ ] Unable to determine Physician Signature: Date/Time: For continuity of documentation, please document condition throughout progress notes and discharge summary. Thank You. To be completed by CDI/Coding staff for physician review: Present Clinical Indicators - Signs / Symptoms / Labs Results and Location in Medical Record [x] CC: chest tightness HP 05/18 [x] Pain is 10/10 when present HP 05/18 [x] Chest Xray suggested CHF with small pleural effusions HP 05/18 [x] BNP= 447.6 Laboratory 05/20 [x] SOB Consult 05/19 [x] EF 25-30% Echo 05/19 [x] Acute systolic HF PN 05/21 [x] no JVD no edema PN 05/21 Present Risk Factors Results and Location in Medical Record [x] Smoker HP 05/18 [x] Afib HP 05/18 [x] CMP PN 05/20 Present Treatments Results and Location in Medical Record [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
--- NOTE | 2020-05-25 11:26 | DIS ---
DATE OF ADMISSION: 05/18/2020 DATE OF DISCHARGE: 05/22/2020 PRIMARY CARE PROVIDER: Unknown, out of town. DISPOSITION: Discharged home. FINAL DIAGNOSES: 1. Nonischemic cardiomyopathy. 2. Atrial fibrillation with rapid ventricular response. 3. Acute systolic heart failure. 4. Chest discomfort. 5. Open wound. DISCHARGE MEDICATIONS: 1. Amiodarone 400 mg p.o. b.i.d. x5 days and 400 mg p.o. daily. 2. Coreg 3.125 mg p.o. b.i.d. 3. Eliquis 5 mg p.o. b.i.d. 4. Lasix 40 mg a day. 5. Lisinopril 2.5 mg p.o. daily. ALLERGIES: NO KNOWN DRUG ALLERGIES. CODE STATUS: Full. PENDING AT TIME OF DISCHARGE: Nothing. DIET: Heart healthy. ACTIVITIES: As tolerated. It is pertinent that the patient has had a LifeVest placed on him. CONSULTATIONS: 1. Dr. Wayne Chi, Cardiology. 2. Dr. Jules Lujan, Electrophysiology. 3. Dr. Priyank Anand, General Surgery. HOSPITAL COURSE: The patient is admitted to [facility] with anxiety, chest tightness. He was found to be in atrial fibrillation with rapid ventricular response. However, he was bradycardic when he first arrived here due to multiple medications at an outlying hospital. His chest x-ray done here revealed bilateral pleural effusions and some pulmonary vascular congestion. On admission, he was started on no medications due to multiple medicines given to him at an outlying hospital. His admitting laboratory done here, white count 6.8, hemoglobin 11.6, and platelet count 364,000, followup a day later was the same. The D-dimer was 1.04. Comprehensive metabolic profile was essentially normal. Troponins 0.04, 0.05. His BNP was positive at 448. Toxicology revealed amphetamine, methamphetamine. He was admitted to marijuana abuse. His echocardiogram was done. He had a severe diminution of LVEF of 25% to 30%. He was taken to the geochemical laboratory technician, where he was found to have a nonischemic cardiomyopathy and 05/19/2020. He had atrial fibrillation, rate about 140. I started diltiazem 5 mg a day. Ordered EKG, meds, etc., started anticoagulation. Dr. Lujan saw him on the , [facility] Usual medications; beta-hernandez, SAM, etc. He recommended amiodarone loading, aspirin. Dr. Anand saw him for a foot wound and thought it did not need any specific therapy. On 05/22, Dr. Chi recommended discharge on amiodarone, lisinopril, and Eliquis. Dr. Lujan agreed with discharge with no further investigations. He is being discharged on medications as stated since the patient is from [place] and there is a heavy machinery operator in [place], he recommended the patient go home to see that heavy machinery operator as soon as possible, which has been recommended to the patient and he is pleased with that. Dr. Lujan recommended return to see him in 2 to 3 weeks. The patient's vital signs currently blood pressure 111/63, pulse 89, respirations 16, and 97% saturation on room air. The patient has been cautioned about amphetamine, methamphetamine usage going forward. As mentioned before, he has been requested to see heavy machinery operator in [place] next week. Job ID: [id number]
[2020-05-26] MEDS ORDERED: Amiodarone 200 MG TAB PO SCH (09:00)
--- NOTE | 2020-05-31 19:27 | EKG ---
Test Reason : Blood Pressure : / mmHG Vent. Rate : 126 BPM Atrial Rate : 138 BPM P-R Int : 000 ms QRS Dur : 084 ms QT Int : 298 ms P-R-T Axes : 000 266 073 degrees QTc Int : 431 ms Atrial flutter with variable block Right superior axis deviation Nonspecific T wave abnormality , probably digitalis effect Abnormal ECG No previous ECGs available Confirmed by RAVINDER BECERRA, GILDA ([id number]) on 05/31/2020 7:27:06 PM Referred By: JAMILA Confirmed By:GILDA CASTELLON MD
--- NOTE | 2020-05-31 19:33 | EKG ---
Test Reason : Blood Pressure : / mmHG Vent. Rate : 078 BPM Atrial Rate : 078 BPM P-R Int : 164 ms QRS Dur : 088 ms QT Int : 392 ms P-R-T Axes : 052 265 086 degrees QTc Int : 446 ms Sinus rhythm with Premature atrial complexes Possible Left atrial enlargement Right superior axis deviation Anterior infarct , age undetermined Abnormal ECG Confirmed by GILDA CASTELLON MD ([id number]) on 05/31/2020 7:33:07 PM Referred By: [facility] Confirmed By:GILDA CASTELLON MD
--- NOTE | 2020-05-31 19:35 | EKG ---
Test Reason : Blood Pressure : / mmHG Vent. Rate : 113 BPM Atrial Rate : 322 BPM P-R Int : 000 ms QRS Dur : 088 ms QT Int : 356 ms P-R-T Axes : 000 263 085 degrees QTc Int : 488 ms Atrial flutter with variable A-V block Right superior axis deviation Anterior infarct (cited on or before 21-MAY-2020) Abnormal ECG When compared with ECG of 21-MAY-2020 07:39, (Unconfirmed) Atrial flutter has replaced Sinus rhythm Confirmed by GILDA CASTELLON MD ([id number]) on 05/31/2020 7:34:56 PM Referred By: [facility] Confirmed By:GILDA CASTELLON MD
== END 2020-05-22 16:50 | disposition home or self-care (01) | DRG 917 ==
LOC: 2NO 23:40
PROVIDERS: ADMIT Internal Medicine; ATTEND Internal Medicine
PROC: 4A023N7 Measurement of Cardiac Sampling and Pressure, Left Heart, Percutaneous Approach (ICD-10-PCS; principal; 2020-05-20)
PROC: B2111ZZ Fluoroscopy of Multiple Coronary Arteries using Low Osmolar Contrast (ICD-10-PCS; 2020-05-20)
PROC: B2151ZZ Fluoroscopy of Left Heart using Low Osmolar Contrast (ICD-10-PCS; 2020-05-20)
PROC: 4A033BC Measurement of Arterial Pressure, Coronary, Percutaneous Approach (ICD-10-PCS; 2020-05-20)
DX: T43.621A Poisoning by amphetamines, accidental (unintentional), initial encounter (principal); I50.21 Acute systolic (congestive) heart failure; I42.8 Other cardiomyopathies; I44.2 Atrioventricular block, complete; I48.0 Paroxysmal atrial fibrillation; F17.200 Nicotine dependence, unspecified, uncomplicated; D72.829 Elevated white blood cell count, unspecified; R79.89 Other specified abnormal findings of blood chemistry; S91.302A Unspecified open wound, left foot, initial encounter; X58.XXXA Exposure to other specified factors, initial encounter
CPT/HCPCS: 36415; 71045; 80048; 80053; 80306; 83036; 83735; 83880; 84484; 85025; 85379; 87070; 87077; 87186; 87205; 93005; 93010; 93306; 93458; 99152; J1644; J1650; J2250; J3010; J3475; J3490; Q9967